=== PATIENT | female | born 1995 | race Caucasian/White ===

== ENCOUNTER 2018-05-03 14:11 | Emergency (ER) | payer OTHER ==
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
== END 2018-05-03 15:50 | disposition home or self-care (01) ==
LOC: ED 14:11
CPT/HCPCS: 99282